=== PATIENT | female | born 1980 | race Caucasian/White ===

== ENCOUNTER 2024-04-05 00:34 | Observation (INO) | payer SELFPAY ==
[~2024-04-05] VITALS: Ht 167.6 cm; Wt 113.0 kg
[2024-04-05] VITALS (19 sets, daily range): BP systolic 71–151; BP diastolic 26–131
[2024-04-05] MEDS ORDERED: SODIUM CHLORIDE 0.9% 1,000 ML IV STA ×2 (00:39→02:21)
[2024-04-05] MEDS ORDERED: KETOROLAC TROMETHAMINE 30 MG/ML SDV IV ONE (00:40)
[2024-04-05] MEDS ORDERED: PROCHLORPERAZINE EDISYLATE 10 MG/2 ML SDV IV ONE (00:40)
[2024-04-05] MEDS ORDERED: ALUM & MAG HYDROX-SIMETHICONE 30 ML PO ONE (00:45)
[2024-04-05] MEDS ORDERED: LIDOCAINE VISCOUS 2% 15 ML UDC PO ONE (00:45)
[2024-04-05] MEDS ORDERED: Pantoprazole Sodium 40 MG VIAL (Protonix) IV ONE (00:45)
[2024-04-05 00:56] LABS: BASO% 0.3 % (0-3); EOS% 2.2 % (0-8); HEMATOCRIT 33.8 % (37.0-47.0); HEMOGLOBIN 10.6 g/dl (12.0-16.0); IMMATURE GRANULOCYTES 1.2 % (0.0-5.0); LYMPH% 22.1 % (15-41); MEAN CELL VOLUME 83.7 fL CALC (80.0-100.0); MEAN CORPUSCULAR HGB 26.2 pG CALC (26.0-32.0); MEAN CORPUSCULAR HGB CONC 31.4 g/dL CAL (32.0-36.0); MONO% 5.1 % (2-13); NEUT# 9.51 thou/uL (2.00-7.15); NEUT% 69.1 % (42-76); RED BLOOD COUNT 4.04 mill/uL (4.20-5.60); RED CELL DISTRI WIDTH 16.2 % (11.5-15.5)
[2024-04-05 01:05] LABS: ALBUMIN 3.9 g/dL (3.2-5.0); BILIRUBIN, TOTAL 0.4 mg/dL (0.02-1.3); CREATININE 1.3 mg/dL (0.5-1.0); TOTAL PROTEIN 6.5 g/dL (6.3-8.2)
[2024-04-05] MEDS ORDERED: LEXAPRO10 MG PO (01:28)
[2024-04-05] MEDS ORDERED: LISINOPRIL2.5 MG PO (01:31)
[2024-04-05] MEDS ORDERED: SYMBICORT1 AE1 IN (01:32)
[2024-04-05] MEDS ORDERED: PRAZOSIN HCL2 M1 (01:32)
[2024-04-05] MEDS ORDERED: ALBUTEROL SUL1.25 MG (01:32)
[2024-04-05 01:37] LABS: URINE BILIRUBIN - DIPSTICK Negative (NEGATIVE); URINE BLOOD DIPSTICK Negative (NEGATIVE); URINE GLUCOSE - DIPSTICK Negative (NEGATIVE); URINE KETONE Negative (NEGATIVE); URINE LEUK ESTERASE Negative (NEGATIVE); URINE NITRITE - DIPSTICK Negative (Negative); URINE PH 5.5 (4.5-8.0); URINE PROTEIN - DIPSTICK 30 mg/dL (NEG-TRACE); URINE UROBILINOGEN - DIPSTICK 0.2 E.U./dL (0.2)
[2024-04-05 01:38] LABS: URINE COLOR Yellow; URINE RBC 0-2 RBC/hpf (0-5); URINE SQUAMOUS EPITHELIAL CELL FEW EPI/hpf (0-FEW)
[2024-04-05] MEDS ORDERED: LACTATED RINGER'S 1,000 ML IV STA (03:29)
[2024-04-05] MEDS ORDERED: SODIUM CHLORIDE 0.9% 1,000 ML IV PRN (04:45)
[2024-04-05] MEDS ORDERED: KETOROLAC TROMETHAMINE 30 MG/ML SDV IV PRN (04:45)
[2024-04-05] MEDS ORDERED: FAMOTIDINE 10MG/ML 2ML SDV IV PRN (04:45)
[2024-04-05] MEDS ORDERED: Pantoprazole Sodium 40 MG VIAL (Protonix) IV SCH (04:45)
[2024-04-05] MEDS ORDERED: ONDANSETRON 4 MG/TAB ODT PO PRN (04:45)
[2024-04-05] MEDS ORDERED: Polyethylene Glycol 3350 17 GM/PKT PO PRN (04:45)
[2024-04-05] MEDS ORDERED: ENOXAPARIN SODIUM 40 MG/0.4 ML SYR SC SCH (04:45)
[2024-04-05] MEDS ORDERED: ONDANSETRON HCl 4 MG/2 ML SDV IV PRN (04:45)
[2024-04-05] MEDS ORDERED: ACETAMINOPHEN 325 MG/TAB PO PRN ×2 (04:45→05:45)
[2024-04-05] MEDS ORDERED: IBUPROFEN 800 MG/TAB PO PRN (04:45)
[2024-04-05] MEDS ORDERED: PROCHLORPERAZINE EDISYLATE 10 MG/2 ML SDV IV PRN (04:45)
[2024-04-05] MEDS ORDERED: ALUM & MAG HYDROX-SIMETHICONE 30 ML PO PRN (04:45)
[2024-04-05] MEDS ORDERED: MORPHINE SULFATE 4 MG/ML VIAL IV PRN (04:50)
[2024-04-05] MEDS ORDERED: CLARIFY DOSE IV PRN (05:10)
[2024-04-05] MEDS ORDERED: CLARIFY DOSE PO PRN (05:10)
== END 2024-04-05 06:14 | disposition left against medical advice (07) | DRG 440 ==
LOC: ED 00:34 → ED-I 04:33 → ED 04:46 → MS2 04:47
PROVIDERS: Family Medicine; ADMIT Internal Medicine; ATTEND Internal Medicine
DX: K85.20 Alcohol induced acute pancreatitis without necrosis or infection (principal); F10.920 Alcohol use, unspecified with intoxication, uncomplicated; Y90.7 Blood alcohol level of 200-239 mg/100 ml; I10 Essential (primary) hypertension; F32.A Depression, unspecified
CPT/HCPCS: G0378; J1650; J2470; Q9967